=== PATIENT | male | born 1960 ===

== ENCOUNTER 2022-05-26 07:23 | Day surgery (SDC) | payer OTHER ==
[~2022-05-26] VITALS: Ht 167.6 cm; Wt 60.0 kg
[~2022-05-26 07:23] MED LIST: ALBUTEROL0.83 MG/ML IH; ALDACTONE 25MG25 M1 PO; ASPIRIN 81M81 MG/TA2 PO; ATROVENT I0.2 MG/1 M IH; BREZTRI AEROS10.7 GM IH; GLUCOPHAGE1000 MG PO; GLUCOTROL XL2.5 MG PO; LANOXIN 0.25M0.25 MG PO; LIPITOR 40MG TA40 MG PO; MULTIPLE VITAMI1 TA5 PO; OMEGA-3 1000 MG1 CAP PO; TOPROL XL200 MG PO; VENTOLIN0.09 MG IH; VITAMIN C500 MG; ZESTRIL 10MG10 MG PO
[2022-05-26 08:04] VITALS: BP 156/77; PULSE 87; TEMP 98.1
[2022-05-26 11:15] VITALS: BP 143/79; PULSE 88
[2022-05-26 11:30] VITALS: BP 134/70; PULSE 88
[2022-05-26 11:45] VITALS: BP 142/82; PULSE 84
--- NOTE | 2022-05-26 12:24 | NUR ---
PT REQ 3L FOR AMBULATION
--- NOTE | 2022-05-26 12:36 | NUR ---
PT ASSISTED TO THE BATHROOM AT THIS TIME.
[2022-05-26 12:37] VITALS: BP 139/77; PULSE 90
--- NOTE | 2022-05-26 12:44 | NUR ---
SW received phone call that patient will need 4L of [place] oxygen following his procedure until his follow up appiontment. Phone call made to [facility] for supplies. Unable to contact the [facility] to establish benefits due to the holiday. Per LORI moreno, without an ExOx, the patient would have to pay $555 today for supplies vs. with an ExOx it would be billed through the [facility] and charges would be determined from his benefits. Patients signed order and clinical documentation faxed to DME company. [facility] will be able to deliver the patients supplies at approx. 1400 today. DEVIN Tong notified.
--- NOTE | 2022-05-26 15:52 | NUR ---
1239: Phone call made to [facility] to check on oxygen status. Per Danielle, rep. at [facility] their courtesy bus driver can arrive to our facility for delivery at approx. 1400. RN notified. 1458:Phone call received from DEVIN Tong that they are still waiting on the patients oxygen to be delivered. 1502: Phone call made to [facility] and spoke with Danielle who states that they were loading up the supplies to head this way. RN notified. 1548: Phone call received from RN stating that the patient is signing his discharge paperwork and is getting reaady to walk out. While on the phone with Ran, this SW contacted [employer] and spoke with Robert who stated that the service delivery director Freddie is on his way with the supplies. Asked Robert if he is able to get ahold of Freddie to have him meet the patient at the front patient admission entrance.
--- NOTE | 2022-05-26 16:00 | NUR ---
PATIENT DISCHARGED AT THIS TIME ACCOMPANIED BY DAUGHTER. HOME 02 STILL NOT HERE AT THIS TIME BUT PATIENT STATED THAT HE DID NOT WANT TO WAIT ANY LONGER AND WANTED TO LEAVE. EDUCATION GIVEN ABOUT S/S OF HYPOXIA AND LOW O2, PATIENT HAS A HOME OXYGEN METER AT HIS HOUSE. ESCORTED TO HOME BOUND VEHICLE BY WHEELCHAIR. DISCHARGE PAPERWORK TAKEN WITH HIM.
== END 2022-05-26 16:00 ==
LOC: SDCO 07:23
DX: R06.02 Shortness of breath (principal); R93.89 Abnormal findings on diagnostic imaging of other specified body structures; R91.1 Solitary pulmonary nodule; J44.9 Chronic obstructive pulmonary disease, unspecified; I10 Essential (primary) hypertension; E11.9 Type 2 diabetes mellitus without complications; F17.210 Nicotine dependence, cigarettes, uncomplicated; Z79.899 Other long term (current) drug therapy; Z79.84 Long term (current) use of oral hypoglycemic drugs
CPT/HCPCS: J2704; J7120